=== PATIENT | male | born 1950 | race Hispanic/Latino ===

== ENCOUNTER 2020-08-17 10:10 | Observation (INO) | payer MEDICARE ==
[~2020-08-17] VITALS: Ht 165.1 cm; Wt 95.3 kg
[2020-08-17] MEDS ORDERED: ASPIRIN 81 MG CHEW TAB PO ONE (10:15)
[2020-08-17 11:11] LABS: BASOPHILS % 0.2 % (0.0-1.0); EOSINOPHILS # (AUTO) 0.1 (0.0-0.4); EOSINOPHILS % 1.4 % (0.0-6.0); HEMATOCRIT 37.9 % (38.2-49.6); HEMOGLOBIN 11.8 g/dL (14.0-18.0); LYMPHOCYTES # (AUTO) 1.9 (1.0-3.2); LYMPHOCYTES % 38.6 % (18.0-39.1); MEAN CORPUSCULAR HGB CONC 31.1 g/dL (31-35); MEAN CORPUSCULAR VOLUME 73.7 fL (81-99); MONOCYTES # (AUTO) 0.4 (0.2-0.8); MONOCYTES % 7.4 % (4.4-11.3); NEUTROPHILS # (AUTO) 2.6 (2.1-6.9); NEUTROPHILS % 51.8 % (38.7-80.0); PLATELET COUNT 232 x10e3/uL (140-360); RED BLOOD COUNT 5.14 x10e6/uL (4.3-5.7); RED CELL DISTRIBUTION WIDTH 21.6 % (11.7-14.4)
[2020-08-17 11:29] LABS: ALANINE AMINOTRANSFERASE 23 IU/L (0-55); ALBUMIN 4.3 g/dL (3.5-5.0); ALBUMIN/GLOBULIN RATIO 1.3 (0.8-2.0); ALKALINE PHOSPHATASE 87 IU/L (40-150); ANION GAP 14.7 mmol/L (8-16); BLOOD UREA NITROGEN 12 mg/dL (7-26); BUN/CREATININE RATIO 13 (6-25); CALCIUM 8.7 mg/dL (8.4-10.2); CARBON DIOXIDE 23 mmol/L (22-29); CHLORIDE 108 mmol/L (98-107); CREATINE KINASE 119 IU/L (30-200); EST GLOMERULAR FILTRATION RATE > 60 ML/MIN (60-); GLUCOSE 100 mg/dL (74-118); POTASSIUM 3.7 mmol/L (3.5-5.1); SODIUM 142 mmol/L (136-145)
[2020-08-17] MEDS ORDERED: MORPHINE SULFATE INJ 2 MG/ML SYR IV PRN (12:45)
[2020-08-17] MEDS ORDERED: ONDANSETRON HCL INJ 2MG/ML 2ML 2 MG/ML VIAL IV PRN (12:45)
[2020-08-17] MEDS ORDERED: MORPHINE SULFATE INJ 4 MG/ML INJ 1ML IV PRN (12:45)
[2020-08-17 16:16] VITALS: BP 176/87
[2020-08-17] MEDS ORDERED: PANTOPRAZOLE SO20 MG PO (16:17)
[2020-08-17] MEDS ORDERED: AMLODIPINE BESYL5 MG PO (16:17)
[2020-08-17] MEDS ORDERED: VASOTEC10 MG PO (16:17)
[2020-08-17] MEDS ORDERED: FERROUS SULFAT325 MG PO (16:17)
[2020-08-17 16:34] VITALS: BP 176/87
[2020-08-17 19:34] LABS: CREATINE KINASE MB 2.7 ng/mL (0-5.0)
[2020-08-17] MEDS: ENALAPRIL MALEATE 10 MG TAB PO SCH (19:45)
[2020-08-17 20:00] VITALS: BP 132/70
[2020-08-17 20:03] VITALS: BP 132/70
[2020-08-18] VITALS: BP 153/81
[2020-08-18 04:00] VITALS: BP 162/85
[2020-08-18 05:11] LABS: BASOPHILS % 0.2 % (0.0-1.0); EOSINOPHILS # (AUTO) 0.2 (0.0-0.4); EOSINOPHILS % 3.9 % (0.0-6.0); HEMATOCRIT 36.1 % (38.2-49.6); HEMOGLOBIN 11.1 g/dL (14.0-18.0); LYMPHOCYTES # (AUTO) 1.8 (1.0-3.2); LYMPHOCYTES % 41.4 % (18.0-39.1); MEAN CORPUSCULAR HEMOGLOBIN 22.8 pg (28-32); MEAN CORPUSCULAR HGB CONC 30.7 g/dL (31-35); MEAN CORPUSCULAR VOLUME 74.1 fL (81-99); MONOCYTES # (AUTO) 0.5 (0.2-0.8); MONOCYTES % 10.3 % (4.4-11.3); NEUTROPHILS # (AUTO) 1.9 (2.1-6.9); PLATELET COUNT 197 x10e3/uL (140-360); RED BLOOD COUNT 4.87 x10e6/uL (4.3-5.7); RED CELL DISTRIBUTION WIDTH 21.5 % (11.7-14.4)
[2020-08-18 05:40] LABS: CREATINE KINASE MB 2.5 ng/mL (0-5.0)
[2020-08-18 05:55] LABS: ALANINE AMINOTRANSFERASE 21 IU/L (0-55); ALBUMIN 3.9 g/dL (3.5-5.0); ALBUMIN/GLOBULIN RATIO 1.3 (0.8-2.0); ALKALINE PHOSPHATASE 82 IU/L (40-150); ANION GAP 13.3 mmol/L (8-16); BLOOD UREA NITROGEN 9 mg/dL (7-26); BUN/CREATININE RATIO 11 (6-25); CALCIUM 8.1 mg/dL (8.4-10.2); CARBON DIOXIDE 26 mmol/L (22-29); CHLORIDE 107 mmol/L (98-107); CREATININE, SERUM 0.83 mg/dL (0.72-1.25); EST GLOMERULAR FILTRATION RATE > 60 ML/MIN (60-); GLUCOSE 96 mg/dL (74-118); POTASSIUM 4.3 mmol/L (3.5-5.1); SODIUM 142 mmol/L (136-145)
[2020-08-18 08:18] VITALS: BP 147/95
[2020-08-18] MEDS: ENALAPRIL MALEATE 10 MG TAB PO SCH (08:21)
[2020-08-18 08:25] VITALS: BP 147/98
== END 2020-08-18 12:03 | disposition home or self-care (01) ==
LOC: ER 10:55 → ERHOLD 12:46 → MED/SURG2 15:20
PROVIDERS: ADMIT Internal Medicine; ATTEND Internal Medicine
DX: R07.89 Other chest pain (principal); I10 Essential (primary) hypertension; D64.9 Anemia, unspecified; K21.9 Gastro-esophageal reflux disease without esophagitis; E66.9 Obesity, unspecified; Z68.34 Body mass index [BMI] 34.0-34.9, adult; M19.012 Primary osteoarthritis, left shoulder; M19.011 Primary osteoarthritis, right shoulder; Z20.828 Contact with and (suspected) exposure to other viral communicable diseases
CPT/HCPCS: 36415 ×2; 71045; 80053 ×2; 82550 ×2; 82553 ×2; 83880; 84484 ×2; 85025 ×2; 93005; 93306; 99284; G0378 ×2; U0002

== ENCOUNTER 2020-10-12 16:51 | Inpatient (IN) | payer MEDICARE ==
[~2020-10-12] VITALS: Ht 165.1 cm; Wt 98.9 kg
[~2020-10-12 16:51] MED LIST: AMLODIPINE BESYL5 MG PO; FERROUS SULFAT325 MG PO; PANTOPRAZOLE SO20 MG PO; VASOTEC10 MG PO
[2020-10-12] MEDS ORDERED: ENOXAPARIN SODIUM INJ 100 MG/ML SYR SC STA (17:13)
[2020-10-12] MEDS ORDERED: NEXTERONE IV 150MG/100ML PREMIX BAG IV ONE (17:15)
[2020-10-12] MEDS ORDERED: AMIODARONE HCL 900 MG in DEXTROSE 5% 500ML 500 ML IV SCH (17:15)
[2020-10-12 17:31] LABS: BASOPHILS % 0.4 % (0.0-1.0); EOSINOPHILS # (AUTO) 0.3 (0.0-0.4); EOSINOPHILS % 6.3 % (0.0-6.0); HEMATOCRIT 42.6 % (38.2-49.6); HEMOGLOBIN 13.9 g/dL (14.0-18.0); LYMPHOCYTES # (AUTO) 1.9 (1.0-3.2); LYMPHOCYTES % 38.7 % (18.0-39.1); MEAN CORPUSCULAR HEMOGLOBIN 26.9 pg (28-32); MEAN CORPUSCULAR HGB CONC 32.6 g/dL (31-35); MEAN CORPUSCULAR VOLUME 82.4 fL (81-99); MONOCYTES # (AUTO) 0.4 (0.2-0.8); MONOCYTES % 8.9 % (4.4-11.3); NEUTROPHILS # (AUTO) 2.2 (2.1-6.9); NEUTROPHILS % 45.5 % (38.7-80.0); PLATELET COUNT 188 x10e3/uL (140-360); RED BLOOD COUNT 5.17 x10e6/uL (4.3-5.7); RED CELL DISTRIBUTION WIDTH 19.7 % (11.7-14.4)
[2020-10-12 17:48] LABS: ALANINE AMINOTRANSFERASE 21 IU/L (0-55); ALBUMIN 4.4 g/dL (3.5-5.0); ALBUMIN/GLOBULIN RATIO 1.4 (0.8-2.0); ALKALINE PHOSPHATASE 91 IU/L (40-150); ANION GAP 15.4 mmol/L (8-16); BLOOD UREA NITROGEN 8 mg/dL (7-26); BUN/CREATININE RATIO 9 (6-25); CALCIUM 8.9 mg/dL (8.4-10.2); CARBON DIOXIDE 25 mmol/L (22-29); CHLORIDE 105 mmol/L (98-107); CREATINE KINASE 226 IU/L (30-200); CREATININE, SERUM 0.88 mg/dL (0.72-1.25); EST GLOMERULAR FILTRATION RATE > 60 ML/MIN (60-); GLUCOSE 103 mg/dL (74-118); POTASSIUM 3.4 mmol/L (3.5-5.1); SODIUM 142 mmol/L (136-145)
[2020-10-12 17:49] LABS: INR 0.96; PROTHROMBIN TIME 13.3 seconds (11.9-14.5)
[2020-10-12 17:50] LABS: PARTIAL THROMBOPLASTIN TIME 36.5 seconds (23.8-35.5)
[2020-10-12] MEDS ORDERED: ONDANSETRON HCL INJ 2MG/ML 2ML 2 MG/ML VIAL IV PRN (21:15)
[2020-10-12] MEDS ORDERED: ASPIRIN 81 MG CHEW TAB PO ONE (21:15)
[2020-10-12] MEDS ORDERED: SODIUM CHLORIDE FLUSH 10 ML SYR INJ PRN (21:15)
[2020-10-13 00:36] LABS: CREATINE KINASE MB 2.3 ng/mL (0-5.0)
[2020-10-13 00:53] LABS: CHOL/HDL RATIO 3.9 (3.9-4.7)
[2020-10-13 05:46] LABS: CREATINE KINASE MB 2.3 ng/mL (0-5.0)
[2020-10-13 16:29] LABS: CREATINE KINASE 134 IU/L (30-200)
[2020-10-13] MEDS: METOPROLOL TARTRATE 25 MG TAB PO SCH (17:13)
[2020-10-13] MEDS: ENALAPRIL MALEATE 10 MG TAB PO SCH (17:13)
[2020-10-13] MEDS: APIXABAN 5 MG TABLET PO SCH (17:13)
[2020-10-13] MEDS ORDERED: AMIODARONE HCL 200 MG TAB ONE (22:12)
[2020-10-13] MEDS: AMIODARONE HCL 200 MG TAB PO SCH (22:19)
[2020-10-14] VITALS (7 sets, daily range): BP systolic 127–145; BP diastolic 83–94
[2020-10-14] MEDS: ENALAPRIL MALEATE 10 MG TAB PO SCH (11:19)
[2020-10-14] MEDS: APIXABAN 5 MG TABLET PO SCH (11:19)
[2020-10-14] MEDS: AMIODARONE HCL 200 MG TAB PO SCH (11:34)
[2020-10-14] MEDS: METOPROLOL TARTRATE 25 MG TAB PO SCH (11:35)
== END 2020-10-14 13:33 | disposition home or self-care (01) | DRG 310 ==
LOC: ER 20:30 → ERHOLD 21:09 → MED/SURG 10-13 00:01
PROVIDERS: ADMIT Internal Medicine; ATTEND Internal Medicine
DX: I48.91 Unspecified atrial fibrillation (principal); R07.9 Chest pain, unspecified; I10 Essential (primary) hypertension; Z20.822 Contact with and (suspected) exposure to COVID-19
CPT/HCPCS: 36415; 70450; 71045; 80053; 80061; 82550; 82553; 83880; 84443; 84484; 85025; 85610; 85730; 93005; 93306; 99284; J1650; J7060; U0002

== ENCOUNTER 2020-11-16 11:15 | Emergency (ER) | payer MEDICARE ==
[~2020-11-16] VITALS: Ht 165.1 cm; Wt 98.9 kg
[2020-11-16 12:16] LABS: BASOPHILS % 0.5 % (0.0-1.0); EOSINOPHILS # (AUTO) 0.1 (0.0-0.4); EOSINOPHILS % 1.7 % (0.0-6.0); HEMATOCRIT 47.7 % (38.2-49.6); HEMOGLOBIN 16.1 g/dL (14.0-18.0); LYMPHOCYTES # (AUTO) 1.7 (1.0-3.2); LYMPHOCYTES % 41.5 % (18.0-39.1); MEAN CORPUSCULAR HEMOGLOBIN 28.8 pg (28-32); MEAN CORPUSCULAR HGB CONC 33.8 g/dL (31-35); MEAN CORPUSCULAR VOLUME 85.2 fL (81-99); MONOCYTES # (AUTO) 0.4 (0.2-0.8); MONOCYTES % 9.8 % (4.4-11.3); NEUTROPHILS # (AUTO) 1.9 (2.1-6.9); NEUTROPHILS % 46.3 % (38.7-80.0); PLATELET COUNT 194 x10e3/uL (140-360); RED CELL DISTRIBUTION WIDTH 15.6 % (11.7-14.4)
[2020-11-16 12:29] LABS: ALANINE AMINOTRANSFERASE 27 IU/L (0-55); ALBUMIN 4.8 g/dL (3.5-5.0); ALBUMIN/GLOBULIN RATIO 1.4 (0.8-2.0); ALKALINE PHOSPHATASE 99 IU/L (40-150); ANION GAP 14.7 mmol/L (8-16); BLOOD UREA NITROGEN 6 mg/dL (7-26); BUN/CREATININE RATIO 7 (6-25); CALCIUM 9.1 mg/dL (8.4-10.2); CARBON DIOXIDE 26 mmol/L (22-29); CHLORIDE 105 mmol/L (98-107); CREATININE, SERUM 0.86 mg/dL (0.72-1.25); EST GLOMERULAR FILTRATION RATE > 60 ML/MIN (60-); GLUCOSE 95 mg/dL (74-118); POTASSIUM 3.7 mmol/L (3.5-5.1); SODIUM 142 mmol/L (136-145)
[2020-11-16 15:26] VITALS: BP 134/72
[2020-11-16] MEDS ORDERED: SODIUM CHLORIDE 0.9% 50ML 50 ML ONE (17:31)
[2020-11-16] MEDS ORDERED: IOPAMIDOL 370 MG/ML 200 ML INFUS..BTL INJ ONE (17:31)
== END 2020-11-16 15:27 | disposition home or self-care (01) ==
LOC: ER 11:34
DX: R07.9 Chest pain, unspecified (principal); I10 Essential (primary) hypertension; I48.91 Unspecified atrial fibrillation; D64.9 Anemia, unspecified; K21.9 Gastro-esophageal reflux disease without esophagitis; Z87.19 Personal history of other diseases of the digestive system; R94.31 Abnormal electrocardiogram [ECG] [EKG]
CPT/HCPCS: 36415; 71045; 71260; 80053; 83690; 83880; 84484; 85025; 93005; 99284; Q9967

== ENCOUNTER 2020-12-13 11:42 | Observation (INO) | payer MEDICARE ==
[~2020-12-13] VITALS: Ht 165.1 cm; Wt 98.9 kg
[2020-12-13] MEDS ORDERED: SODIUM CHLORIDE 0.9% 1000ML 1,000 ML IV STA (11:47)
[2020-12-13] MEDS ORDERED: METOPROLOL SUCC25 MG PO (11:54)
[2020-12-13] MEDS ORDERED: ELIQUIS5 MG PO (11:54)
[2020-12-13] MEDS ORDERED: MECLIZINE HCL 12.5 MG TAB PO ONE (12:00)
[2020-12-13 12:12] LABS: BASOPHILS % 0.4 % (0.0-1.0); EOSINOPHILS # (AUTO) 0.1 (0.0-0.4); EOSINOPHILS % 2.7 % (0.0-6.0); HEMATOCRIT 44.7 % (38.2-49.6); HEMOGLOBIN 15.2 g/dL (14.0-18.0); LYMPHOCYTES # (AUTO) 2.1 (1.0-3.2); LYMPHOCYTES % 39.5 % (18.0-39.1); MEAN CORPUSCULAR HEMOGLOBIN 29.7 pg (28-32); MEAN CORPUSCULAR VOLUME 87.5 fL (81-99); MONOCYTES # (AUTO) 0.5 (0.2-0.8); MONOCYTES % 9.6 % (4.4-11.3); NEUTROPHILS # (AUTO) 2.5 (2.1-6.9); NEUTROPHILS % 47.4 % (38.7-80.0); PLATELET COUNT 179 x10e3/uL (140-360); RED BLOOD COUNT 5.11 x10e6/uL (4.3-5.7); RED CELL DISTRIBUTION WIDTH 13.7 % (11.7-14.4)
[2020-12-13 12:17] LABS: CLARITY,URINE CLEAR (CLEAR); COLOR,URINE YELLOW (YELLOW); KETONES,URINE NEGATIVE (NEGATIVE); LEUKOCYTE ESTERASE ,URINE TRACE (NEGATIVE); NITRITE,URINE NEGATIVE (NEGATIVE); PROTEIN,URINE DIPSTICK NEGATIVE (NEGATIVE); URINE UROBILINOGEN 0.2 mg/dL (0.2 - 1)
[2020-12-13 12:30] LABS: RBC,URINE 0-5 /HPF (0-5)
[2020-12-13 12:37] LABS: INR 0.97; PROTHROMBIN TIME 13.5 seconds (11.9-14.5)
[2020-12-13 12:39] LABS: ALANINE AMINOTRANSFERASE 26 IU/L (0-55); ALBUMIN 4.3 g/dL (3.5-5.0); ALBUMIN/GLOBULIN RATIO 1.3 (0.8-2.0); ALKALINE PHOSPHATASE 93 IU/L (40-150); ANION GAP 13.1 mmol/L (8-16); BLOOD UREA NITROGEN 12 mg/dL (7-26); BUN/CREATININE RATIO 15 (6-25); CALCIUM 9.1 mg/dL (8.4-10.2); CARBON DIOXIDE 28 mmol/L (22-29); CHLORIDE 104 mmol/L (98-107); CREATINE KINASE 82 IU/L (30-200); CREATININE, SERUM 0.81 mg/dL (0.72-1.25); EST GLOMERULAR FILTRATION RATE > 60 ML/MIN (60-); GLUCOSE 102 mg/dL (74-118); MAGNESIUM 1.9 MG/DL (1.3-2.1); POTASSIUM 4.1 mmol/L (3.5-5.1); SODIUM 141 mmol/L (136-145)
[2020-12-13] MEDS ORDERED: ONDANSETRON HCL INJ 2MG/ML 2ML 2 MG/ML VIAL IV PRN (14:00)
[2020-12-13] MEDS: SODIUM CHLORIDE 0.9% 1000ML 1,000 ML IV SCH (14:38)
[2020-12-13 16:27] VITALS: BP 144/123
[2020-12-13 17:00] VITALS: BP 143/90
[2020-12-13 19:09] VITALS: BP 143/90
[2020-12-13 19:51] LABS: CREATINE KINASE MB 1.1 ng/mL (0-5.0)
[2020-12-13 20:00] VITALS: BP 137/90
[2020-12-13] MEDS: MECLIZINE HCL 12.5 MG TAB PO PRN (20:30)
[2020-12-13 21:27] VITALS: BP 143/90
[2020-12-14 00:58] VITALS: BP 133/86
[2020-12-14 05:32] VITALS: BP 133/86
[2020-12-14 07:45] VITALS: BP 152/84
[2020-12-14 08:17] VITALS: BP 152/84
[2020-12-14 08:40] LABS: ALANINE AMINOTRANSFERASE 23 IU/L (0-55); ALBUMIN 3.8 g/dL (3.5-5.0); ALBUMIN/GLOBULIN RATIO 1.2 (0.8-2.0); ALKALINE PHOSPHATASE 86 IU/L (40-150); ANION GAP 15.4 mmol/L (8-16); BLOOD UREA NITROGEN 9 mg/dL (7-26); BUN/CREATININE RATIO 11 (6-25); CALCIUM 8.6 mg/dL (8.4-10.2); CARBON DIOXIDE 19 mmol/L (22-29); CHLORIDE 112 mmol/L (98-107); CHOLESTEROL 171 MD/DL (0-199); CREATININE, SERUM 0.79 mg/dL (0.72-1.25); EST GLOMERULAR FILTRATION RATE > 60 ML/MIN (60-); GLUCOSE 92 mg/dL (74-118); HDL CHOLESTEROL 43 MG/DL (40-60); LDL CHOLESTEROL 110 MG/DL (60-130); POTASSIUM 4.4 mmol/L (3.5-5.1); SODIUM 142 mmol/L (136-145); TRIGLYCERIDES 92 MG/DL (0-149)
[2020-12-14 08:58] LABS: BASOPHILS % 0.3 % (0.0-1.0); EOSINOPHILS # (AUTO) 0.2 (0.0-0.4); EOSINOPHILS % 3.1 % (0.0-6.0); HEMOGLOBIN 15.1 g/dL (14.0-18.0); LYMPHOCYTES # (AUTO) 2.3 (1.0-3.2); LYMPHOCYTES % 35.4 % (18.0-39.1); MEAN CORPUSCULAR HEMOGLOBIN 29.7 pg (28-32); MEAN CORPUSCULAR HGB CONC 33.6 g/dL (31-35); MEAN CORPUSCULAR VOLUME 88.6 fL (81-99); MONOCYTES # (AUTO) 0.6 (0.2-0.8); MONOCYTES % 9.2 % (4.4-11.3); NEUTROPHILS # (AUTO) 3.3 (2.1-6.9); NEUTROPHILS % 51.7 % (38.7-80.0); PLATELET COUNT 176 x10e3/uL (140-360); RED BLOOD COUNT 5.08 x10e6/uL (4.3-5.7); RED CELL DISTRIBUTION WIDTH 13.5 % (11.7-14.4)
[2020-12-14 11:00] VITALS: BP 153/88
[2020-12-14] MEDS ORDERED: PANTOPRAZOLE SOD 40 MG TABEC PO SCH (11:00)
[2020-12-14] MEDS ORDERED: PANTOPRAZOLE SODIUM PO SCH (11:00)
[2020-12-14] MEDS ORDERED: METOPROLOL SUCCINATE 25 MG TAB XL PO SCH (11:00)
[2020-12-14] MEDS ORDERED: ENALAPRIL MALEATE 10 MG TAB PO SCH (11:00)
[2020-12-14] MEDS ORDERED: FERROUS SULFATE 325 MG TAB PO SCH (11:00)
[2020-12-14] MEDS: SODIUM CHLORIDE 0.9% 1000ML 1,000 ML IV SCH ×2 (12:38)
[2020-12-14] MEDS: MECLIZINE HCL 12.5 MG TAB PO PRN (12:57)
[2020-12-14 16:37] VITALS: BP 149/95
[2020-12-14] MEDS ORDERED: APIXABAN 5 MG TABLET PO SCH (17:00)
[2020-12-14] MEDS ORDERED: AMOXICILLIN500 MG PO (18:39)
[2020-12-14] MEDS ORDERED: antivert PO (18:40)
== END 2020-12-14 19:15 | disposition home or self-care (01) ==
LOC: ER 11:47 → ERHOLD 13:46 → MED/SURG 15:31
PROVIDERS: ADMIT Internal Medicine; ATTEND Internal Medicine
DX: R42 Dizziness and giddiness (principal); H53.8 Other visual disturbances; I48.91 Unspecified atrial fibrillation; I10 Essential (primary) hypertension; Z20.822 Contact with and (suspected) exposure to COVID-19; K04.7 Periapical abscess without sinus
CPT/HCPCS: 36415 ×2; 70450; 70551; 71045; 80053 ×2; 80061; 81001; 82550 ×2; 82553 ×2; 83735; 83880; 84484 ×2; 85025 ×2; 85610; 85730; 87086; 93005; 93880; 99284; G0378 ×2; J7030 ×2; J8597 ×2; S0164; U0002

== ENCOUNTER 2021-08-09 13:05 | Emergency (ER) | payer OTHER ==
[~2021-08-09] VITALS: Ht 165.1 cm; Wt 90.7 kg
[~2021-08-09 13:05] MED LIST changes: +AMOXICILLIN500 MG PO; +ELIQUIS5 MG PO; +METOPROLOL SUCC25 MG PO; +antivert PO
[2021-08-09] MEDS ORDERED: ANAPROX DS550 MG PEG (19:10)
[2021-08-09 19:38] VITALS: BP 129/76
== END 2021-08-09 19:40 | disposition home or self-care (01) ==
LOC: ER 16:45
DX: G57.01 Lesion of sciatic nerve, right lower limb (principal); I10 Essential (primary) hypertension; I48.91 Unspecified atrial fibrillation; K21.9 Gastro-esophageal reflux disease without esophagitis; Z87.19 Personal history of other diseases of the digestive system
CPT/HCPCS: 99284

== ENCOUNTER 2022-05-21 07:38 | Emergency (ER) | payer MEDICARE, OTHER ==
[~2022-05-21] VITALS: Ht 165.1 cm; Wt 90.7 kg
[~2022-05-21 07:38] MED LIST changes: +ANAPROX DS550 MG PEG
[2022-05-21] MEDS ORDERED: SINGULAIR10 MG PO (07:56)
== END 2022-05-21 08:26 | disposition home or self-care (01) ==
LOC: ER 07:49
DX: J34.89 Other specified disorders of nose and nasal sinuses (principal); R51.9 Headache, unspecified; I48.91 Unspecified atrial fibrillation; I10 Essential (primary) hypertension; K21.9 Gastro-esophageal reflux disease without esophagitis
CPT/HCPCS: 99282

== ENCOUNTER 2022-06-24 08:18 | Emergency (ER) | payer MEDICARE, OTHER ==
[~2022-06-24] VITALS: Ht 165.1 cm; Wt 90.7 kg
[~2022-06-24 08:18] MED LIST changes: +SINGULAIR10 MG PO
[2022-06-24] MEDS ORDERED: VALIUM2 MG PO (09:22)
== END 2022-06-24 09:24 | disposition home or self-care (01) ==
LOC: ER 08:21
DX: R20.2 Paresthesia of skin (principal); M62.838 Other muscle spasm; I10 Essential (primary) hypertension; I48.91 Unspecified atrial fibrillation; K21.9 Gastro-esophageal reflux disease without esophagitis; H40.9 Unspecified glaucoma
CPT/HCPCS: 99282

== ENCOUNTER 2022-09-22 09:29 | Emergency (ER) | payer MEDICARE, OTHER ==
[~2022-09-22] VITALS: Ht 165.1 cm; Wt 90.7 kg
[~2022-09-22 09:29] MED LIST changes: +LACTULOSE20 GM/30 M PO; +VALIUM2 MG PO
[2022-09-22 10:02] LABS: BASOPHILS % 0.2 % (0.0-1.0); EOSINOPHILS # (AUTO) 0.1 (0.0-0.4); EOSINOPHILS % 1.5 % (0.0-6.0); HEMATOCRIT 50.1 % (38.2-49.6); HEMOGLOBIN 16.1 g/dL (14.0-18.0); LYMPHOCYTES # (AUTO) 2.8 (1.0-3.2); LYMPHOCYTES % 34.2 % (18.0-39.1); MEAN CORPUSCULAR HEMOGLOBIN 30.4 pg (28-32); MEAN CORPUSCULAR HGB CONC 32.1 g/dL (31-35); MEAN CORPUSCULAR VOLUME 94.7 fL (81-99); MONOCYTES # (AUTO) 0.9 (0.2-0.8); MONOCYTES % 11.1 % (4.4-11.3); NEUTROPHILS # (AUTO) 4.2 (2.1-6.9); NEUTROPHILS % 52.8 % (38.7-80.0); PLATELET COUNT 153 x10e3/uL (140-360); RED BLOOD COUNT 5.29 x10e6/uL (4.3-5.7); RED CELL DISTRIBUTION WIDTH 12.3 % (11.7-14.4)
[2022-09-22 10:08] LABS: INR 1.12; PROTHROMBIN TIME 14.6 seconds (11.9-14.5)
[2022-09-22 10:09] LABS: PARTIAL THROMBOPLASTIN TIME 43.3 seconds (23.8-35.5)
[2022-09-22 10:17] LABS: ALBUMIN 4.2 g/dL (3.5-5.0); ANION GAP 13.7 mmol/L (8-16); CALCIUM 9.1 mg/dL (8.4-10.2); CREATININE, SERUM 0.85 mg/dL (0.72-1.25); MAGNESIUM 1.7 MG/DL (1.3-2.1); POTASSIUM 3.7 mmol/L (3.5-5.1)
[2022-09-22 10:18] LABS: ALBUMIN/GLOBULIN RATIO 1.1 (0.8-2.0)
[2022-09-22 10:24] LABS: CREATINE KINASE MB 1.9 ng/mL (0-5.0)
[2022-09-22] MEDS ORDERED: METOPROLOL TARTRATE 50 MG TAB PO ONE (10:30)
[2022-09-22] MEDS ORDERED: BENZONATATE100 MG PO (11:51)
[2022-09-22] MEDS ORDERED: PREDNISONE20 MG PO (11:58)
[2022-09-22 12:10] VITALS: BP 152/106
== END 2022-09-22 12:13 | disposition home or self-care (01) ==
LOC: ER 09:32
DX: R50.9 Fever, unspecified (principal); B97.4 Respiratory syncytial virus as the cause of diseases classified elsewhere; Z20.822 Contact with and (suspected) exposure to COVID-19; R94.31 Abnormal electrocardiogram [ECG] [EKG]
CPT/HCPCS: 36415; 71045; 80053; 82550; 82553; 83735; 83880; 84484; 85025; 85610; 85730; 87040; 93005; 99284

== ENCOUNTER 2022-10-26 04:54 | Observation (INO) | payer MEDICARE, OTHER ==
[~2022-10-26] VITALS: Ht 165.1 cm; Wt 90.7 kg
[~2022-10-26 04:54] MED LIST changes: +BENZONATATE100 MG PO; +PREDNISONE20 MG PO
[2022-10-26] MEDS ORDERED: METOCLOPRAMIDE HCL 10 MG/2ML VIAL IV STA (05:12)
[2022-10-26] MEDS ORDERED: HYDRALAZINE HCL 20 MG/ML VIAL IV STA (05:12)
[2022-10-26 05:16] LABS: BASOPHILS % 0.2 % (0.0-1.0); EOSINOPHILS # (AUTO) 0.3 (0.0-0.4); EOSINOPHILS % 4.1 % (0.0-6.0); HEMATOCRIT 43.8 % (38.2-49.6); HEMOGLOBIN 14.8 g/dL (14.0-18.0); LYMPHOCYTES # (AUTO) 2.3 (1.0-3.2); LYMPHOCYTES % 35.1 % (18.0-39.1); MEAN CORPUSCULAR HEMOGLOBIN 30.6 pg (28-32); MEAN CORPUSCULAR HGB CONC 33.8 g/dL (31-35); MEAN CORPUSCULAR VOLUME 90.5 fL (81-99); MONOCYTES # (AUTO) 0.7 (0.2-0.8); MONOCYTES % 9.9 % (4.4-11.3); NEUTROPHILS # (AUTO) 3.3 (2.1-6.9); NEUTROPHILS % 50.2 % (38.7-80.0); PLATELET COUNT 174 x10e3/uL (140-360); RED BLOOD COUNT 4.84 x10e6/uL (4.3-5.7); RED CELL DISTRIBUTION WIDTH 12.7 % (11.7-14.4)
[2022-10-26 05:52] LABS: ALBUMIN/GLOBULIN RATIO 1.1 (0.8-2.0); ANION GAP 13.8 mmol/L (8-16); CALCIUM 8.9 mg/dL (8.4-10.2); CREATININE, SERUM 0.81 mg/dL (0.72-1.25); POTASSIUM 3.8 mmol/L (3.5-5.1)
[2022-10-26 06:02] LABS: CREATINE KINASE MB 2.9 ng/mL (0-5.0)
[2022-10-26 06:10] LABS: AMPHETAMINES SCREEN,URINE NEGATIVE (NEGATIVE); BENZODIAZEPINES SCREEN,URINE NEGATIVE (NEGATIVE); PHENCYCLIDINE SCREEN,URINE NEGATIVE (NEGATIVE)
[2022-10-26] MEDS ORDERED: ACETAMINOPHEN 325 MG TAB PO ONE (07:00)
[2022-10-26] MEDS ORDERED: NITROGLYCERIN 2% OINT 1 GM PKT TOP ONE (07:00)
[2022-10-26] MEDS ORDERED: SODIUM CHLORIDE FLUSH 10 ML SYR INJ PRN (08:00)
[2022-10-26] MEDS ORDERED: ENALAPRILAT IV INJ 1.25 MG/ML VIAL IV STA (08:13)
[2022-10-26] MEDS: ENALAPRIL MALEATE 10 MG TAB PO SCH (09:00)
[2022-10-26] MEDS: METOPROLOL SUCCINATE 25 MG TAB XL PO SCH (09:10)
[2022-10-26] MEDS: APIXABAN 5 MG TABLET PO SCH ×2 (09:10→17:20)
[2022-10-26] MEDS ORDERED: TIMOLOL(T) OU (09:12)
[2022-10-26 13:02] VITALS: BP 123/82
[2022-10-26 13:09] VITALS: BP 123/82
[2022-10-26 13:56] LABS: CREATINE KINASE MB 2.5 ng/mL (0-5.0)
[2022-10-26 14:49] LABS: CREATINE KINASE MB 2.8 ng/mL (0-5.0)
[2022-10-26 15:54] VITALS: BP 147/78
[2022-10-26] MEDS: ACETAMINOPHEN 325 MG TAB PO PRN (17:20)
[2022-10-26 21:16] VITALS: BP 142/80
[2022-10-27 00:54] VITALS: BP 156/90
[2022-10-27 02:07] VITALS: BP 156/90
[2022-10-27 05:45] VITALS: BP 156/91
[2022-10-27 05:55] LABS: BASOPHILS % 0.3 % (0.0-1.0); EOSINOPHILS # (AUTO) 0.1 (0.0-0.4); EOSINOPHILS % 1.5 % (0.0-6.0); HEMATOCRIT 42.1 % (38.2-49.6); HEMOGLOBIN 14.4 g/dL (14.0-18.0); LYMPHOCYTES # (AUTO) 1.6 (1.0-3.2); LYMPHOCYTES % 21.9 % (18.0-39.1); MEAN CORPUSCULAR HEMOGLOBIN 30.9 pg (28-32); MEAN CORPUSCULAR HGB CONC 34.2 g/dL (31-35); MEAN CORPUSCULAR VOLUME 90.3 fL (81-99); MONOCYTES # (AUTO) 0.7 (0.2-0.8); MONOCYTES % 9.9 % (4.4-11.3); NEUTROPHILS # (AUTO) 4.7 (2.1-6.9); PLATELET COUNT 174 x10e3/uL (140-360); RED BLOOD COUNT 4.66 x10e6/uL (4.3-5.7); RED CELL DISTRIBUTION WIDTH 12.4 % (11.7-14.4)
[2022-10-27 06:16] LABS: ANION GAP 11.9 mmol/L (8-16); CALCIUM 8.9 mg/dL (8.4-10.2); CREATININE, SERUM 0.78 mg/dL (0.72-1.25); POTASSIUM 3.9 mmol/L (3.5-5.1)
[2022-10-27 06:37] LABS: CHOL/HDL RATIO 4.6 (3.9-4.7)
[2022-10-27] MEDS: ACETAMINOPHEN 325 MG TAB PO PRN (07:21)
[2022-10-27 08:00] VITALS: BP 156/91
[2022-10-27 09:06] VITALS: BP 159/89
[2022-10-27] MEDS ORDERED: VASOTEC10 M1 PO (10:25)
[2022-10-27] MEDS ORDERED: LOSARTAN POTASSIUM 100 MG TAB PO SCH (10:30)
[2022-10-27] MEDS ORDERED: DOCUSATE SODIUM 100 MG CAP PO SCH (10:30)
[2022-10-27] MEDS ORDERED: SENNOSIDES 8.6 MG TAB PO SCH (10:30)
[2022-10-27] MEDS: APIXABAN 5 MG TABLET PO SCH (12:07)
[2022-10-27] MEDS: ENALAPRIL MALEATE 10 MG TAB PO SCH (12:08)
[2022-10-27] MEDS: METOPROLOL SUCCINATE 25 MG TAB XL PO SCH (12:08)
[2022-10-27 12:33] VITALS: BP 143/89
== END 2022-10-27 12:48 | disposition home or self-care (01) ==
LOC: ER 05:00 → ERHOLD 08:04 → INTOOBSV 08:04 → MED/SURG2 11:15
PROVIDERS: ADMIT Internal Medicine; ATTEND Internal Medicine
DX: R07.9 Chest pain, unspecified (principal); R51.9 Headache, unspecified; I48.20 Chronic atrial fibrillation, unspecified; I10 Essential (primary) hypertension; Z79.02 Long term (current) use of antithrombotics/antiplatelets; E78.00 Pure hypercholesterolemia, unspecified; K21.9 Gastro-esophageal reflux disease without esophagitis; E66.09 Other obesity due to excess calories; H40.9 Unspecified glaucoma; H91.90 Unspecified hearing loss, unspecified ear; I83.90 Asymptomatic varicose veins of unspecified lower extremity; Z20.822 Contact with and (suspected) exposure to COVID-19; Z79.899 Other long term (current) drug therapy; Z68.33 Body mass index [BMI] 33.0-33.9, adult; Z82.49 Family history of ischemic heart disease and other diseases of the circulatory system; Z82.3 Family history of stroke
CPT/HCPCS: 0223U; 36415; 70450; 71045; 80048; 80053; 80061; 80307; 82550; 82553; 83690; 83880; 84484; 85025; 93005; 94799; 99284; G0378; J0360; J2765